=== PATIENT | male | born 1940 | race Caucasian/White ===

== ENCOUNTER 2017-08-08 06:47 | Emergency (ER) | payer OTHER, MEDICARE ==
[~2017-08-08] VITALS: Ht 190.5 cm; Wt 111.6 kg
[~2017-08-08 06:47] MED LIST: AMLODIPINE BESYL5 MG PO; IBUPROFEN800 MG PO; KEFLEX500 MG PO; PERCOCET 5/31 TABLET PO
[2017-08-08] MEDS ORDERED: NORCO 5/3251 TABLET PO (07:25)
[2017-08-08] MEDS ORDERED: FLEXERIL10 MG PO (07:25)
[2017-08-08 07:55] VITALS: BP 157/95
== END 2017-08-08 08:00 | disposition home or self-care (01) ==
LOC: EME 06:47
DX: M54.42 Lumbago with sciatica, left side (principal); G89.29 Other chronic pain
CPT/HCPCS: 99281; 99284; J3010